=== PATIENT | female | born 1935 | race Caucasian/White ===

== ENCOUNTER 2019-10-04 05:06 | Inpatient (IN) ==
[2019-10-04] MEDS ORDERED: fentaNYL citrate 100 MCG/2 ML VIAL IV PRN (05:40)
[2019-10-04] MEDS ORDERED: DICLOFENAC SOD 1% GEL 100 GM TUBE EXT STA (05:40)
[2019-10-04] MEDS ORDERED: ACETAMINOPHEN 1,000 MG/100 ML VIAL IV STA (05:40)
--- NOTE | 2019-10-04 05:47 | Emergency Department Note ---
History of Present Illness General Chief complaint: Back Injury/Pain Stated complaint: SEVERE LOWER BACK PAIN Time Seen by Provider: 10/04/19 05:21 Source: patient Mode of arrival: wheelchair Limitations: no limitations History of Present Illness Provider complaint: back pain, hip pain Onset (ago): hour(s) Location: back and hip Radiation: extremity Severity: moderate Pain Consistency: + constant Maximum Pain Intensity: 10 Current Pain Intensity: 10 Quality: + constant Relieved By: + none Exacerbated By: + movement Associated symptoms: no chest pain, no fever/chills, no nausea/vomiting, no shortness of breath, no syncope and no weakness Treatments prior to arrival: none This is an 84 yo female who present c/o worsening low back pain and hip pain with difficulty walking. Patient states pain began 3 weeks ago. Patient has a remote history of a compression fracture from 2 weeks ago. Patient states at the beginning of the month she was seen and lock even and had a CT and was told she had bulging disks, as well as other chronic findings including osteoporosis and a remote compression fracture. No recent trauma. Patient has been using gabapentin, Lidoderm patch. Patient initially was given tramadol by the ER doctor, however did not tolerate this due to nausea. Patient states the pain radiates from her right low back into her right lateral hip and all the way down her leg. Patient denies numbness or tingling. Patient denies saddle anesthesia. Patient denies any change in bowel or bladder function. No incontinence. Patient denies any fevers or chills, nausea or vomiting. Patient denies any other abdominal pain. Patient states she spent most of the day in bed as it was too painful to move. Pt seen during a time of high acuity and national emergency pandemic while wearing PPE. Home Medications Home Medications Medication Instructions Recorded Confirmed Type alendronate 70 mg PO MO 10/04/19 10/04/19 History apixaban [Eliquis] 5 mg PO BID 10/04/19 10/04/19 History atenolol 25 mg PO DAILY 10/04/19 10/04/19 History cholecalciferol (vitamin D3) 25 mcg PO DAILY 10/04/19 10/04/19 History [Vitamin D3] docusate sodium 100 mg PO BID PRN 10/04/19 10/04/19 History levothyroxine [Synthroid] 112 mcg PO DAILY 10/04/19 10/04/19 History omeprazole 20 mg PO DAILY 10/04/19 10/04/19 History pravastatin 20 mg PO DAILY 10/04/19 10/04/19 History Allergies Allergy/AdvReac Type Severity Reaction Status Date / Time Iodinated Contrast Media Allergy Unknown _ Unverified 10/04/19 05:41 Past Med/Surg History Medical History (Updated 10/04/19 @ 12:13 by Kaitlin Galvez PA-C) CKD (chronic kidney disease), stage III History of second degree heart block Status post PPM 2017 HLD (hyperlipidemia) HTN (hypertension) Osteoporosis Paroxysmal A-fib Surgical History (Updated 10/04/19 @ 11:56 by Kaitlin Galvez PA-C) History of cardiac pacemaker in situ [address] [place] [address] Lao History of hysterectomy History of laparoscopic cholecystectomy History of total bilateral knee replacement History of total thyroidectomy Family History (Updated 10/04/19 @ 12:00 by Kaitlin Galvez PA-C) Other Family history non-contributory Social History (Updated 10/04/19 @ 12:00 by Kaitlin Galvez PA-C) Smoking Status: Never smoker Hx Alcohol Use: No Hx Substance Use: No Preferred Language: Gu[place] After School Caregiver Required: No Beliefs That Will Affect Care: None marital status: / Current Living Situation: Alone Other Information That Helps Us Care for You: No Feels Safe at Home: Yes Safety Concerns: Feels Safe At This Time Review of Systems See HPI for pertinent positives & negatives. and A total of 10 systems reviewed and were otherwise negative Physical Exam Vital Signs Vital Signs - 24 hr 10/04/19 05:14 10/04/19 06:07 10/04/19 06:30 Temperature 36.8 C Temperature Source Oral Pulse Rate 65 61 60 Pulse Rate from SpO2 Sensor 61 60 Respiratory Rate 16 14 13 Respiratory Depth Normal Blood Pressure 189/94 H 171/89 H 140/81 Blood Pressure Mean 125 109 99 Blood Pressure Position Sitting Pulse Oximetry 96 92 95 Oxygen Delivery Method Room Air Sepsis Recent Fever Within 48 Hours No Sepsis New/Unexplained Change in Mental Status No Sepsis Action Taken by Nursing No Action Required 10/04/19 07:00 10/04/19 07:30 10/04/19 08:00 Temperature Temperature Source Pulse Rate 60 62 60 Pulse Rate from SpO2 Sensor 60 62 61 Respiratory Rate 16 14 14 Respiratory Depth Blood Pressure 142/78 H 147/74 H 147/86 H Blood Pressure Mean 96 95 109 Blood Pressure Position Pulse Oximetry 92 97 96 Oxygen Delivery Method Sepsis Recent Fever Within 48 Hours Sepsis New/Unexplained Change in Mental Status Sepsis Action Taken by Nursing 10/04/19 08:30 10/04/19 09:00 10/04/19 09:30 Temperature Temperature Source Pulse Rate 60 60 64 Pulse Rate from SpO2 Sensor 60 64 Respiratory Rate 13 13 20 Respiratory Depth Blood Pressure 177/91 H 177/100 H 193/111 H Blood Pressure Mean 111 135 131 Blood Pressure Position Pulse Oximetry 96 98 95 Oxygen Delivery Method Sepsis Recent Fever Within 48 Hours Sepsis New/Unexplained Change in Mental Status Sepsis Action Taken by Nursing 10/04/19 10:00 Temperature Temperature Source Pulse Rate 65 Pulse Rate from SpO2 Sensor 65 Respiratory Rate 20 Respiratory Depth Blood Pressure 181/97 H Blood Pressure Mean 111 Blood Pressure Position Pulse Oximetry 97 Oxygen Delivery Method Sepsis Recent Fever Within 48 Hours Sepsis New/Unexplained Change in Mental Status Sepsis Action Taken by Nursing GENERAL: alert, well appearing, well nourished, no distress, non-toxic, obese, tearful EYE EXAM: normal conjunctiva, PERRL and EOM's grossly intact OROPHARYNX: no exudate, no erythema, lips, buccal mucosa, and tongue normal and mucous membranes are moist NECK: supple, no nuchal rigidity, no adenopathy, non-tender LUNGS: Clear to auscultation. Normal chest wall mechanics, no w/r/r HEART: no murmurs, S1 normal and S2 normal ABDOMEN: abdomen soft, non-tender, normo-active bowel sounds, no masses, no rebound or guarding. BACK: Back is symmetrical on inspection and there is no deformity, no midline tenderness, no CVA tenderness. SKIN: no rashes and no bruising UPPER EXTREMITIES: upper extremities are grossly normal. FROM, nml pulses b/l. LOWER EXTREMITIES: No pitting edema. FROM, nml pulses b/l. Pain with palpation of the right lateral hip. NEURO EXAM: Normal sensorium, cranial nerves II-XII grossly intact, normal speech, no gross weakness of arms, no gross weakness of legs. Gross sensation intact. Course Course 08: Patient updated on results. Still awaiting faxed report from recent CT from [facility] even. I did contact radiology to double check patient's pacemaker for MRI compatibility. We had previously faxed a release of information paper to locate them to try and obtain results of the recent CT from 2 weeks ago. A copy of this has not yet arrived. 0845: Results from recent CT of the lumbar spine have now arrived. Overall impression is read by Marty Yeung MD, Impression: Diffuse osseous demineralization with stable compression fractures of L1 (with 30% loss of the vertebral body height) and L3. (Greater than 50% loss of the vertebral body height). No new compression fracture. L4-5: There is a concentric bulge minimally contacting the thecal sac. There is bilateral ligamentum flavum and facet hypertrophy. Pelvis: Diverticulosis coli without acute diverticulitis. There is a stable right-sided hypoattenuating cystic pelvic mass of 5.0 x 2.9 cm with Hounsfield units of 2 probably representing a right ovarian cyst. 0911: With the assistance of nursing staff from radiology, we did double check the patient's [place] pacemaker and it is not MRI compatible. Case management discussing with patient options for inpatient management versus inpatient rehab at this time. She is aware of CT findings from outpatient CT. Will perform an ambulatory trial here. UA still pending. Administered Medications Hydrocodone Bitart/Acetaminophen ([place] 5/325) 1 tab PO Q4H PRN PRN Reason: Moderate Pain Stop: 10/18/19 11:04 Last Admin: 10/04/19 15:36 Dose: 1 tab Documented by: [id number] Admin: 10/04/19 11:42 Dose: 1 tab Documented by: [id number] Al Hydrox/Mg Hydrox/Simethicone (Maalox) 30 ml PO Q6H PRN PRN Reason: Dyspepsia Stop: 11/03/19 12:59 Last Admin: 10/04/19 23:51 Dose: 30 ml Documented by: [id number] Apixaban (Eliquis) 5 mg PO BID MARIA TERESA Stop: 11/03/19 20:59 Last Admin: 10/04/19 20:47 Dose: 5 mg Documented by: [id number] Docusate Sodium (Colace) 100 mg PO BID PRN PRN Reason: Constipation Stop: 11/03/19 12:59 Last Admin: 10/04/19 20:48 Dose: 100 mg Documented by: [id number] Lidocaine (Lidoderm 5%) 1 patch TD QAM [facility] Stop: 11/03/19 13:14 Last Admin: 10/04/19 14:06 Dose: 1 patch Documented by: [id number] Miscellaneous (Remove Lidoderm Patch) 1 ea N/A DAILY@2100 [facility] Stop: 11/03/19 20:59 Last Admin: 10/04/19 20:47 Dose: 1 ea Documented by: [id number] Morphine Sulfate (Morphine Sulfate) 4 mg IV Q4H PRN PRN Reason: Severe Pain Stop: 10/18/19 12:59 Last Admin: 10/04/19 17:02 Dose: 4 mg Documented by: [id number] Ondansetron HCl (Zofran) 4 mg IV Q6H PRN PRN Reason: Nausea Stop: 11/03/19 12:59 Last Admin: 10/04/19 17:12 Dose: 4 mg Documented by: [id number] Discontinued Medications Apixaban (Eliquis) 5 mg PO NOW STA Stop: 10/04/19 10:42 Last Admin: 10/04/19 11:36 Dose: 5 mg Documented by: [id number] Atenolol (Tenormin) 25 mg PO NOW STA Stop: 10/04/19 10:42 Last Admin: 10/04/19 11:36 Dose: 25 mg Documented by: [id number] Diclofenac Sodium (Voltaren 1% Top) 2 gm EXT NOW STA Stop: 10/04/19 05:41 Last Admin: 10/04/19 06:01 Dose: 2 gm Documented by: [id number] Fentanyl Citrate (Fentanyl Citrate) 50 mcg IV Q15M PRN PRN Reason: Pain Stop: 10/18/19 05:39 Last Admin: 10/04/19 05:55 Dose: 50 mcg Documented by: [id number] Acetaminophen (Ofirmev) 1,000 mg in 100 mls @ 400 mls/hr IV NOW STA Stop: 10/04/19 05:54 Last Infusion: 10/04/19 06:13 Dose: 0 mls/hr Documented by: [id number] Admin: 10/04/19 05:55 Dose: 400 mls/hr Documented by: [id number] Potassium Chloride (Klor-Con M20) 40 meq PO NOW STA Stop: 10/04/19 08:43 Last Admin: 10/04/19 08:47 Dose: 40 meq Documented by: [id number] Medical Decision Making Differential Diagnosis Differential diagnoses includes but is not limited to lumbar radiculopathy, muscle strain, facture, cauda equina, mass, and disc herniation. Medical Records Attestation: I reviewed the patient's medical records. Home Medications Current Medication List: was personally reviewed by me Laboratory Data Attestation: I reviewed the patient's lab results. Result diagrams: 10/04/19 05:55 10/04/19 05:55 Lab Results 10/04/19 10/04/19 Range/Units 05:55 05:55 WBC 6.26 (4.8-10.8) K/uL RBC 4.28 (4.2-5.4) M/uL Hgb 12.8 (12.0-16.0) g/dL Hct 38.0 (37-47) % MCV 88.8 (80-100) fL MCH 29.9 (25-34) pg MCHC 33.7 (32-36) g/dL RDW Std Deviation 45.3 (36.4-46.3) fL RDW Coeff of Adonis 13.9 (11.5-14.5) % Plt Count 314 (130-400) K/uL MPV 9.5 (7.4-10.4) fL Immature Gran % (Auto) 0.3 % Neut % (Auto) 71.1 % Lymph % (Auto) 16.1 % [place] % (Auto) 10.5 % Eos % (Auto) 1.8 % Baso % (Auto) 0.2 % Neut # (Auto) 4.45 (1.4-6.5) K/uL Lymph # (Auto) 1.01 L (1.2-3.4) K/uL [place] # (Auto) 0.66 H (0.11-0.59) K/uL Eos # (Auto) 0.11 (0-0.5) K/uL Baso # (Auto) 0.01 (0-0.2) K/uL Immature Gran # (Auto) 0.02 (0.00-0.02) K/uL Sodium 140 (136-145) mmol/L Potassium 3.3 L (3.5-5.1) mmol/L Chloride 108 H (98-107) mmol/L Carbon Dioxide 27 (21-32) mmol/L Anion Gap 5.0 (3-11) BUN 15 (7-18) mg/dl Creatinine 0.85 (0.6-1.2) mg/dl Est Cr Clr Drug Dosing 49.6 ml/min Est GFR ( Amer) 72.4 Est GFR (Non-Af Amer) 62.5 BUN/Creatinine Ratio 18.1 (10-20) Glucose 90 (70-99) mg/dl Calcium 8.9 (8.5-10.1) mg/dl Total Bilirubin 0.3 (0.2-1) mg/dl AST 21 (15-37) U/L ALT 23 (12-78) U/L Alkaline Phosphatase 143 H (45-117) U/L Total Protein 7.9 (6.4-8.2) gm/dl Albumin 3.1 L (3.4-5.0) gm/dl Globulin 4.8 H (2.5-4.0) gm/dl Albumin/Globulin Ratio 0.6 L (0.9-2) Blood Pressure Blood Pressure Findings: Elevated blood pressure Blood Pressure Disposition: further management by hospitalist [facility] Narrative Patient here due to increased back pain with lumbar radiculopathy. Patient with remote history of compression fractures and chronic back pain. States pain has been getting worse recently with increased radicular symptoms which have limited her ability to perform ADLs at home as she lives independently. We were eventually able to obtain a copy of the recent CT of the lumbar spine the patient had. We did check into the patient's pacemaker device to see if it was MRI compatible and it was not. Basic labs were checked as a precaution, lynneverardo nt's potassium was repleted with oral potassium. UA was pending however I began discussing with the immigration case worker options for disposition including inpatient versus rehab. The immigration case worker went and discussed these options with the patient and her daughter bedside. Nurse did attempt to perform an ambulatory trial to help the patient get up to obtain a urine and this was unsuccessful. While patient had improved pain with some additional medications at rest, any movement significantly exacerbates her pain. Patient hypertensive here which I feel is likely secondary to increased pain and discomfort, as well as the fire supervisor hours as she would be soon ready for blood pressure medication re gardless. Patient's had no recent traumatic injury, I did not feel she required additional repeat CT imaging at this time. Patient had no symptoms to suggest cauda equina. I do not suspect epidural abscess or hematoma, acute discitis, acute nerve impingement or disc herniation. Patient's was signed out to eladio Peña pending final decision on disposition after review of urine. I do not suspect acute vascular etiology, or referred pain from intra-abdominal pathology contributing to patient's symptoms. An order was placed for continuous cardiac monitoring. The monitor shows a rate of _68_ with _normal sinus_ rhythm. Impression & Plan Low back pain, Lumbar radiculopathy, Ambulatory dysfunction Discharge Plan Visit Data *Final* Discharge Date/Time: 10/04/19 11:56 Chief Complaint: Back Injury/Pain Stated Complaint: SEVERE LOWER BACK PAIN ED Provider: Edmond Echevarria Discharge Problem: Low back pain, Lumbar radiculopathy, Ambulatory dysfunction Patient Disposition: Admitted As Inpatient Discharge Instructions Interventions: ED Discharge Assessment Last Done: 10/04/19 11:56 Discharge Problem: Low back pain Qualifiers: Chronicity: acute Back pain laterality: right Sciatica presence: with sciatica Sciatica laterality: sciatica of right side Qualified Code(s): M54.41 - Lumbago with sciatica, right side
[2019-10-04 06:04] LABS: Basophils # (auto) 0.01 K/uL (0-0.2); Basophils % (auto) 0.2 %; Eosinophils # (auto) 0.11 K/uL (0-0.5); Eosinophils % (auto) 1.8 %; Hemoglobin 12.8 g/dL (12.0-16.0); Immature Granulocytes # (auto) 0.02 K/uL (0.00-0.02); Immature Granulocytes % (auto) 0.3 %; Lymphocytes # (auto) 1.01 K/uL (1.2-3.4); Lymphocytes % (auto) 16.1 %; Mean Corpuscular Hemoglobin 29.9 pg (25-34); Mean Corpuscular Hgb Conc 33.7 g/dL (32-36); Mean Corpuscular Volume 88.8 fL (80-100); Mean Platelet Volume 9.5 fL (7.4-10.4); Monocytes # (auto) 0.66 K/uL (0.11-0.59); Monocytes % (auto) 10.5 %; Neutrophils # (auto) 4.45 K/uL (1.4-6.5); Neutrophils % (auto) 71.1 %; Platelet Count 314 K/uL (130-400); RDW Coefficient of Variation 13.9 % (11.5-14.5); RDW Standard Deviation 45.3 fL (36.4-46.3); Red Blood Count 4.28 M/uL (4.2-5.4); White Blood Count 6.26 K/uL (4.8-10.8)
[2019-10-04 06:20] LABS: Albumin Level 3.1 gm/dl (3.4-5.0); BUN Creatinine Ratio 18.1 (10-20); Calcium 8.9 mg/dl (8.5-10.1); Creatinine Clr Calc Pharmacy 49.6 ml/min; Est GFR (African American) 72.4; Est GFR (Non-African American) 62.5; Potassium 3.3 mmol/L (3.5-5.1)
[2019-10-04 06:25] LABS: Albumin Globulin Ratio 0.6 (0.9-2); Bilirubin,Total 0.3 mg/dl (0.2-1); Globulin 4.8 gm/dl (2.5-4.0); Total Protein 7.9 gm/dl (6.4-8.2)
[2019-10-04] MEDS ORDERED: POTASSIUM CHLORIDE 20 MEQ TABCR PO STA (08:42)
--- NOTE | 2019-10-04 10:00 | Emergency Department Note ---
ED Visit Note Received patient in sign out. Discussed pt with hospitalist service who accepted the patient. . : Low back pain Qualifiers: Chronicity: acute Back pain laterality: right Sciatica presence: with sciatica Sciatica laterality: sciatica of right side Qualified Code(s): M54.41 - Lumbago with sciatica, right side
[2019-10-04] MEDS ORDERED: ATENOLOL 25 MG TABLET PO STA (10:41)
[2019-10-04] MEDS ORDERED: APIXABAN 2.5 MG TAB PO STA (10:41)
--- NOTE | 2019-10-04 11:21 | History & Physical Report ---
Date of Service October 04, 2019 Assessment & Plan (1) Ambulatory dysfunction: (2) Lumbar radiculopathy: (3) Compression fracture: This is an 84-year-old female who has significant PMH of PAF anticoagulated on Eliquis, HTN, HLD, CKD stage III, history of second-degree heart block status post PPM in 2017, GERD who presents to ED secondary to intractable back pain x2 weeks. Pt with intractable low back pain with lumbar radiculopathy symptoms. Prior CT of lumbar spine revealed L1 and L3 stable and no compression fractures, no new fractures. Patient unable to have MRI given pacemaker. Now with ambulatory dysfunction, worsening of symptoms and unable to return home. +straight leg raise. Admit to medical Repeat CT thoracic, lumbar and pelvis Unfortunately unable to have MRI given pacer consult Dr. Beatty - appreciate his input consult PT/OT pain control with lidocaine patch, [place] q4hr prn mod pain and morphine 4mg q4hr severe pain may need to consult pain management if no improvement (4) Hypokalemia: K 3.3 replace repeat in a.m. (5) Paroxysmal A-fib: Rate and rhythm controlled on atenolol Continue apixaban for stroke prophylaxis (6) HTN (hypertension): Blood pressure elevated in ED likely in setting of pain Home dose atenolol now Control pain and monitor (7) CKD (chronic kidney disease), stage III: baseline cr 1.0 monitor (8) HLD (hyperlipidemia): continue statin (9) DVT prophylaxis: apixaban Disposition: admit to med/surg, case management consulted, likely to need placement at acute rehab Follow up: PCP Dr. Castañeda upon discharge Pt was seen and examined in collaboration with Dr. Bosch, please see addendum History of Present Illness Chief Complaint: Intractable back pain x3 weeks. Primary Care Provider: Lakesha Castañeda, DO This is an 84-year-old female who has significant PMH of PAF anticoagulated on Eliquis, HTN, HLD, CKD stage III, history of second-degree heart block status post PPM in 2017, GERD who presents to ED secondary to intractable back pain x2 weeks. Daughter Jessica is at bedside. Patient states over the past 3 weeks she developed significant bilateral lower back pain with radiation to bilateral lower extremities right greater than left. Pain radiates to the lateral aspect of right buttock and down right leg to foot. Pain is described as sharp and burning, worse with movement, improved with rest, tried Tylenol, lidocaine patch, tramadol without relief. Pain in the left leg is more of a, "tightness," and will loosen up with walking, but this does not occur on the right. She is a known PMH of osteoporosis as well as known compression fractures. She was seen in walk even to ED on 09/[address] scan which revealed diffuse osseous demineralization with stable compression fractures of L1 and L3. L4-5 revealed concentric bulge minimally contacting the thecal sac and bilateral ligamentum flavum and facet hypertrophy. Also noted was a 5 x 2 cm cystic pelvic mass representing ovarian cyst. He was unable to obtain MRI due to pacemaker as it was found to be noncompatible. She was seen and evaluated by PCP as well and did receive a steroid injection to right buttock. She was also prescribed tramadol which caused nausea and she did not tolerate this. She has had progressive decline with ambulatory status and functioning at home. Initially it started with difficulty with ADLs and now she just has difficulty ambulating in general. Pain is extremely severe when standing and attempting to walk. She denies any bowel or bladder incontinence. She does deal with constipation on a chronic basis and last BM was 2 days ago. She does take [id number] stool softeners. She denies any fever, chills, sweats, lightheadedness, dizziness, chest pain, short breath, cough, nausea, vomiting, abdominal pain. She denies any known contact with COVID-19. Denies any loss of smell or taste. In ED patient made hemodynamically stable but was significantly hypertensive in setting of pain. She also did not have her a.m. meds. Lab work notable for K3.3, BUN and creatinine 15.85 otherwise CBC and CMP relatively unremarkable. Urinalysis appears consistent with contamination. In ED she did receive analgesia with improvement in pain. She also received oral potassium. Allergies Allergy/AdvReac Type Severity Reaction Status Date / Time Iodinated Contrast Media Allergy Unknown _ Unverified 10/04/19 05:41 Home Medications Home Medications Medication Instructions Recorded Confirmed Type alendronate 70 mg PO MO 10/04/19 10/04/19 History apixaban [Eliquis] 5 mg PO BID 10/04/19 10/04/19 History atenolol 25 mg PO DAILY 10/04/19 10/04/19 History cholecalciferol (vitamin D3) 25 mcg PO DAILY 10/04/19 10/04/19 History [Vitamin D3] docusate sodium 100 mg PO BID PRN 10/04/19 10/04/19 History levothyroxine [Synthroid] 112 mcg PO DAILY 10/04/19 10/04/19 History omeprazole 20 mg PO DAILY 10/04/19 10/04/19 History pravastatin 20 mg PO DAILY 10/04/19 10/04/19 History Past Med/Surg History Medical History (Updated 10/04/19 @ 12:13 by Kaitlin Galvez PA-C) CKD (chronic kidney disease), stage III History of second degree heart block Status post PPM 2017 HLD (hyperlipidemia) HTN (hypertension) Osteoporosis Paroxysmal A-fib Surgical History (Updated 10/04/19 @ 11:56 by Kaitlin Galvez PA-C) History of cardiac pacemaker in situ [address] [place] [address] Lao History of hysterectomy History of laparoscopic cholecystectomy History of total bilateral knee replacement History of total thyroidectomy Family History (Updated 10/04/19 @ 12:00 by Kaitlin Galvez PA-C) Other Family history non-contributory Social History (Updated 10/04/19 @ 12:00 by Kaitlin Galvez PA-C) Smoking Status: Never smoker Hx Alcohol Use: No Hx Substance Use: No Preferred Language: Faroese Base Filler Operator Required: No Beliefs That Will Affect Care: None marital status: / Current Living Situation: Alone Other Information That Helps Us Care for You: No Feels Safe at Home: Yes Safety Concerns: Feels Safe At This Time Review of Systems Review of Systems: All systems reviewed & are unremarkable except as noted in HPI & below Physical Exam Physical Exam: Constitutional: WD/WN, elderly, female, vitals as above, NAD, sitting up in bed, pleasant, conversing easily Head: Normocephalic, Atraumatic Eyes: PERRL, conjunctivae normal, anicteric sclerae ENMT: external ear and nose normal, oropharynx normal Neck: trachea midline, no thyromegaly normal visual inspection Respiratory: normal respiratory effort, lungs clear to auscultation, no wheeze, rales, rhonchi. Normal insp/exp effort, no accessory muscle use Cardiovascular: RRR, no murmur, no edema but obese lower extremities vessels: no JVD or carotid bruit Chest: normal inspection of chest Abdomen: normal bowel sounds, soft, nontender, no hepatosplenomegaly Musculoskeletal: no cyanosis or clubbing, patient with inability to move bilateral lower extremities secondary to pain. I was able to passively flex and extend bilateral lower extremities. Positive straight leg raise on right. Positive pain to palpation to bilateral paraspinal musculature but no pain to palpation of her actual vertebral processes. Back examined and no erythema or rash. Bilateral upper extremities range of motion in place and strength 5 out of 5. Skin: no rashes, warm and dry normal turgor Neurologic: PERRL, EOMI, accommodation nl, no face palsy, no dysarthria CN's II-XI intact bilaterally and moves all extremities Psychiatric: A+Ox3, euthymic affect Lymphatic: no cervical or axillary lymphadenopathy : deferred Results & Data Results & Data ([facility]) Vital Signs (Past 12 Hours) Vital Signs Temp Pulse Resp BP Pulse Ox 10/04/19 10:00 65 20 181/97 H 97 10/04/19 09:30 64 20 193/111 H 95 10/04/19 09:00 60 13 177/100 H 98 10/04/19 08:30 60 13 177/91 H 96 10/04/19 08:00 60 14 147/86 H 96 10/04/19 07:30 62 14 147/74 H 97 10/04/19 07:00 60 16 142/78 H 92 10/04/19 06:30 60 13 140/81 95 10/04/19 06:07 61 14 171/89 H 92 10/04/19 05:14 36.8 C 65 16 189/94 H 96 Laboratory Results Short CBC 10/04/19 Range/Units 05:55 WBC 6.26 (4.8-10.8) K/uL Hgb 12.8 (12.0-16.0) g/dL Hct 38.0 (37-47) % Plt Count 314 (130-400) K/uL BMP 10/04/19 05:55 Sodium 140 Potassium 3.3 L Chloride 108 H Carbon Dioxide 27 BUN 15 Creatinine 0.85 Glucose 90 Calcium 8.9 Liver Function 10/04/19 Range/Units 05:55 Total Bilirubin 0.3 (0.2-1) mg/dl AST 21 (15-37) U/L ALT 23 (12-78) U/L Alkaline Phosphatase 143 H (45-117) U/L Albumin 3.1 L (3.4-5.0) gm/dl Diagnostic Findings CT scan reviewed from 09/19/19 at OSH: Diffuse osseous demineralization with stable compression fractures of L1 (with 30% loss of vertebral body height) and L3. (Greater than 50% loss of vertebral body height (. No new compression fracture. L4-5: There is a concentric bulge minimally contacting the thecal sac there is bilateral mild ligamentum flavum and facet hypertrophy. Pelvis: Diverticulosis coli without acute diverticulitis, stable right-sided hypoattenuating cystic pelvic mass of 5 to 2.9 cm representing ovarian cyst. Medications Administered Fentanyl Citrate (Fentanyl Citrate) 50 mcg IV Q15M PRN PRN Reason: Pain Stop: 10/18/19 05:39 Last Admin: 10/04/19 05:55 Dose: 50 mcg Documented by: [id number] Discontinued Medications Diclofenac Sodium (Voltaren 1% Top) 2 gm EXT NOW STA Stop: 10/04/19 05:41 Last Admin: 10/04/19 06:01 Dose: 2 gm Documented by: [id number] Acetaminophen (Ofirmev) 1,000 mg in 100 mls @ 400 mls/hr IV NOW STA Stop: 10/04/19 05:54 Last Infusion: 10/04/19 06:13 Dose: 0 mls/hr Documented by: [id number] Admin: 10/04/19 05:55 Dose: 400 mls/hr Documented by: [id number] Potassium Chloride (Klor-Con M20) 40 meq PO NOW STA Stop: 10/04/19 08:43 Last Admin: 10/04/19 08:47 Dose: 40 meq Documented by: [id number] Code Status & VTE Plan Code Status Full Code VTE Prophylaxis Plan VTE Prophylaxis will be ordered: No Supervising Physician Co-Signing Physician Notes Attending addendum The patient was seen and examined in the presence of the daughter She was admitted with back pain with radiation to the legs No pain at rest Denies any problem with urine and bowel habit On examination Lying in bed comfortably Hemodynamically stable Chest-clear to auscultate bilaterally Heart-S1, S2 regular Abdomen-benign Extremities-trace edema bilaterally ADMISSION NURSE COORDINATOR-alert, awake and oriented x3 Spine-lower spinal tenderness with pain radiating down to the foot on the right side Admission labs and imaging studies reviewed Has lumbar compression fracture with radiculopathy Appreciate Ortho input and recommendation Reviewed with assessment and plan as outlined above by Samantha Bosch
[2019-10-04] MEDS: HYDROCODONE/ACETAMOPHEN 5/325MG TAB PO PRN ×2 (11:42→15:36)
[2019-10-04 11:51] LABS: Appearance Urine Clear (Clear); Bacteria Urine Automated Negative (Negative); Bilirubin Urine Negative (Negative); Blood Urine Negative (Negative); Color Urine Yellow; Epithelial Cell Urine Auto >30 /lpf (0-5); Glucose Urine UA Negative (Negative); Ketones Urine 1+ (Negative); Leukocyte Esterase Urine Trace (Negative); Nitrite Urine Negative (Negative); Protein Urine Negative (Negative); Specific Gravity Urine 1.024 (1.000-1.030); Urobilinogen Urine Negative (Negative)
--- NOTE | 2019-10-04 12:57 | CT Scan Report ---
CT thoracic spine wo con HISTORY: 84 years-old Female pain acute mid back pain status post fall COMPARISON: None TECHNIQUE: Multiple axial CT images of the thoracic spine were obtained without the use of IV contras t. A dose lowering technique was used consistent with the principals of JUSTINE. FINDINGS: Moderate cardiomegaly. Coronary artery calcifications. Mildly enlarged mediastinal lymph nodes measur e up to 1.2 cm within the precarinal distribution. Mild dependent subsegmental bibasilar atelectasis. 6 mm fissural nodule of the left lower lobe suggests probable lymph node. The central airways appear patent. Small hiatal hernia with mild distal esophageal wall thickening. Mild distal periesophageal stranding is also noted. There is mild nonspecific bilateral perinephric stranding. Probable cyst of the posterior interpolar right kidney, 1.6 cm. Demineralized appearance the bones with increased kyphotic curvature of the thoracic spine. There is at least moderate multilevel intervertebral disc space narrowing with moderate facet arthrosis and sp ondylitic spurring. Mild superior endplate compression deformity of less than 20% is noted at T1, lik brennen chronic. 30% anterior endplate compression deformity at T6 is noted without retropulsion, also li joel chronic. 50% superior endplate compression deformity without retropulsion at L1, age indetermina te. Evaluation of the central canal and neuroforamina is better assessed by MRI. No high-grade centra l canal stenosis. No definite paravertebral edema. IMPRESSION: 1. No definite acute fracture or subluxation. 2. There is mild superior endplate compression deformity involving multiple thoracic levels, measurin g approximately 30% at T6. These are technically age-indeterminate however are favored to be chronic in etiology. No paravertebral edema or retropulsion. 3. Age-indeterminate L1 compression deformity. 4. Demineralized appearance of the bones with multilevel degenerative changes as above. 5. Small hiatal hernia with mild distal esophageal wall thickening and periesophageal stranding. Edward elate clinically to exclude esophagitis. 6. Hiatal hernia. 7. Nonspecific mild mediastinal adenopathy. ACT 112: Negative or not required by law. The above report was generated using voice recognition software. It may contain grammatical, syntax o r spelling errors. Electronically signed by: Raza Lucio M.D. 10/04/2019 12:56 PM
--- NOTE | 2019-10-04 12:58 | CT Scan Report ---
PELVIS CT CT DOSE: HISTORY: Pelvic pain. pain TECHNIQUE: Multiaxial CT images of the pelvis were performed and reformatted in the sagittal and pat nal plane without the use of contrast. A dose lowering technique was utilized adhering to the princi ples of ALA. COMPARISON: None. FINDINGS: Moderate cartilage space narrowing within the bilateral hips consistent with osteoarthritis . Nondisplaced transverse fracture through the nondisplaced fracture within the anterior cortex of th e S2 vertebral body which extends to the bilateral sacral wings. Mild degenerative changes within the bilateral sacroiliac joints. No additional fractures identified within the pelvis or hips. Minimal p resacral edema. A 4.3 cm right ovarian cyst. This is considered pathologic in a postmenopausal female . Moderate stool within the colon and rectum. Colonic diverticulosis. No evidence for acute diverticu litis. No pelvic hematoma. IMPRESSION: 1. Nondisplaced sacral fractures described above. 2. A 4.3 cm right ovarian cyst. This is considered pathologic in a postmenopausal female ACT 112: Negative or not required by law. Electronically signed by: Henry Tracy M.D. 10/04/2019 12:56 PM
[2019-10-04] MEDS ORDERED: POLYETHYLENE (MIRALAX) 17 GM PACK PO PRN (13:00)
[2019-10-04] MEDS ORDERED: ALUMINUM/MAGNESIUM SUSP 30 ML UDC PO PRN (13:00)
[2019-10-04] MEDS ORDERED: MAGNESIUM HYDROXIDE SUSP 30 ML UDC PO PRN (13:00)
--- NOTE | 2019-10-04 13:00 | CT Scan Report ---
CT SCAN OF THE LUMBAR SPINE CLINICAL HISTORY: Low back pain. No reported history of trauma. Reported history of compression fract ures at L1 and L3. COMPARISON STUDY: No priors. TECHNIQUE: CT scan of the lumbar spine is performed from the lower thoracic spine to the sacrum. Imag es are reviewed in the axial, sagittal, and coronal planes. IV contrast was not administered for this examination. A dose lowering technique was utilized adhering to the principles of ALARA. CT DOSE: 582.64 mGycm FINDINGS: The skeletal structures are osteopenic. There is a mild to moderate superior endplate compr ession deformity of L1 and a moderate compression deformity of L2. No significantly retropulsed fragm ents are identified. Vertebral body height is otherwise maintained throughout the lumbar spine. Align ment is preserved. Small anterior and lateral marginal osteophytes are seen throughout. The transvers e and spinous processes are intact. There is no spondylolysis. No lytic or blastic lesion is seen. Th e intervertebral disc spaces appear maintained. There is no evidence of high-grade central canal sten osis by CT. Mild facet arthropathy is noted in the lower lumbar region. There are bilateral sacral in sufficiency fractures. This extends across midline at the level of S2. Degenerative change is noted i n the sacroiliac joints. There is fatty atrophy of the paraspinous musculature. The abdominal aorta i s normal in caliber noting moderate atherosclerotic calcification. IMPRESSION: 1. There are compression deformities of L1 and L3 as above which are reportedly chronic. 2. No additional bony abnormality is seen involving the lumbar spine. 3. There are bilateral sacral insufficiency fractures which cross midline at S2. 4. Additional findings as above. ACT 112: Negative or not required by law. Electronically signed by: Froy Bhatia M.D. 10/04/2019 12:59 PM
[2019-10-04] MEDS: LIDOCAINE 5% 1 PATCH TD SCH (14:06)
[2019-10-04] MEDS: MoRPHine SULFATE 4 MG/ML 1 ML CARP\\VIAL IV PRN (17:02)
[2019-10-04] MEDS: ONDANSETRON INJ 2 MG/ML 2 ML VIAL IV PRN (17:12)
--- NOTE | 2019-10-04 17:24 | Orthopedic Consultation ---
Date of Consultation October 04, 2019 Assessment & Plan (1) Lumbar radiculopathy: I have discussed with this patient and her daughter this evening regarding her clinical presentation. She does have evidence of a fracture at the S1-S2 level. Her of her pain patterns are consistent with this issue. She does appear to have a clear radiculopathy involving the L4-L5 region. Unfortunately she is unable to obtain an MRI secondary to pacemaker. The CAT scan demonstrates some neuroforaminal disease and stenosis but I am unable to appreciate clear neural compression. She would be a candidate for a CT myelogram however she is on Eliquis and this would have to be discontinued prior to such a study. Is probably warranted to consider consultation with interventional pain management to see if an epidural injection would also be of consideration or additional oral medications. Present on Admission?: Yes History of Present Illness Reason for Consultation: Back and right leg pain Attending Physician: Kori Bosch MD History of Present Illness This is a very pleasant 84-year-old female presents with worsening back and right leg pain over the past 3 weeks. She denies any precipitating trauma fall or event. She does use a cane when walking around her home. It is now unable to ambulate. She describes her symptoms involving lumbosacral junction of the right buttock going down the anterior posterior thigh below the knee and the lateral aspect of the lower leg into the foot. Weightbearing exacerbates her pain. Left lower extremity is essentially asymptomatic. She describes his pain is debilitating. Allergies Allergy/AdvReac Type Severity Reaction Status Date / Time Iodinated Contrast Media Allergy Unknown _ Unverified 10/04/19 05:41 Home Medications Home Medications Medication Instructions Recorded Confirmed Type alendronate 70 mg PO MO 10/04/19 10/04/19 History apixaban [Eliquis] 5 mg PO BID 10/04/19 10/04/19 History atenolol 25 mg PO DAILY 10/04/19 10/04/19 History cholecalciferol (vitamin D3) 25 mcg PO DAILY 10/04/19 10/04/19 History [Vitamin D3] docusate sodium 100 mg PO BID PRN 10/04/19 10/04/19 History levothyroxine [Synthroid] 112 mcg PO DAILY 10/04/19 10/04/19 History omeprazole 20 mg PO DAILY 10/04/19 10/04/19 History pravastatin 20 mg PO DAILY 10/04/19 10/04/19 History Patient History Medical History (Updated 10/04/19 @ 12:13 by Kaitlin Galvez PA-C) CKD (chronic kidney disease), stage III History of second degree heart block Status post PPM 2017 HLD (hyperlipidemia) HTN (hypertension) Osteoporosis Paroxysmal A-fib Surgical History (Updated 10/04/19 @ 11:56 by Katilin Galvez PA-C) History of cardiac pacemaker in situ [address] [address] Lao History of hysterectomy History of laparoscopic cholecystectomy History of total bilateral knee replacement History of total thyroidectomy Family History (Updated 10/04/19 @ 12:00 by Kaitlin Galvez PA-C) Other Family history non-contributory Social History (Updated 10/04/19 @ 12:00 by Kaitlin Galvez PA-C) Smoking Status: Never smoker Hx Alcohol Use: No Hx Substance Use: No Preferred Language: Mauritian Developmental Behavioral Physician Required: No Beliefs That Will Affect Care: None marital status: / Current Living Situation: Alone Other Information That Helps Us Care for You: No Feels Safe at Home: Yes Safety Concerns: Feels Safe At This Time Physical Exam Physical Exam: On exam she does not exhibit gross tension signs. He has a negative logroll bilaterally. She is hyperesthetic to touch in the lower extremities. This apparently is chronic. She does exhibit plus out of 5 plantar flexion dorsiflexion quadriceps bilaterally. Results & Data ([facility]) Vital Signs (Past 12 Hours) Vital Signs Temp Pulse Pulse Resp BP BP Pulse Ox 10/04/19 15:35 37.0 C 61 18 160/88 H 95 10/04/19 12:45 36.8 C 61 17 179/96 H 96 10/04/19 11:35 60 15 175/100 H 97 10/04/19 11:30 64 15 10/04/19 11:00 67 14 183/103 H 96 10/04/19 10:30 69 18 187/106 H 94 10/04/19 10:00 65 20 181/97 H 97 10/04/19 09:30 64 20 193/111 H 95 10/04/19 09:00 60 13 177/100 H 98 10/04/19 08:30 60 13 177/91 H 96 10/04/19 08:00 60 14 147/86 H 96 10/04/19 07:30 62 14 147/74 H 97 10/04/19 07:00 60 16 142/78 H 92 10/04/19 06:30 60 13 140/81 95 10/04/19 06:07 61 14 171/89 H 92
[2019-10-04] MEDS: APIXABAN 5 MG TABLET PO SCH (20:47)
[2019-10-04] MEDS: DOCUSATE SODIUM 100 MG CAP PO PRN (20:48)
[2019-10-05] MEDS: MoRPHine SULFATE 4 MG/ML 1 ML CARP\\VIAL IV PRN (04:32)
[2019-10-05] MEDS: ONDANSETRON INJ 2 MG/ML 2 ML VIAL IV PRN (04:36)
[2019-10-05] MEDS: LEVOTHYROXINE SODIUM 112 MCG TABLET PO SCH (05:24)
[2019-10-05] MEDS: HYDROCODONE/ACETAMOPHEN 5/325MG TAB PO PRN ×2 (09:37→13:40)
[2019-10-05] MEDS: APIXABAN 5 MG TABLET PO SCH ×2 (09:38→20:06)
[2019-10-05] MEDS: PRAVASTATIN SOD 20 MG TAB PO SCH (09:38)
[2019-10-05] MEDS: CHOLECALCIFEROL 1,000 UNITS 25 MCG TAB PO SCH (09:39)
[2019-10-05] MEDS: ATENOLOL 25 MG TABLET PO SCH (09:39)
[2019-10-05] MEDS: PANTOPRAZOLE PO SCH (09:39)
[2019-10-05] MEDS: LIDOCAINE 5% 1 PATCH TD SCH (09:41)
--- NOTE | 2019-10-05 16:52 | Hospitalist Progress Note ---
Date of Service October 05, 2019 Assessment & Plan (1) Ambulatory dysfunction: Secondary to back pain PT and OT evaluation (2) Lumbar radiculopathy: Has lower back pain secondary to compression fractures of the L1 and L3 and also sacral fracture Has radiculopathy mostly on the right side No problem with bowel and/or bladder function Appreciate Ortho input Consulted pain management as per Ortho (3) Compression fracture: This is an 84-year-old female who has significant PMH of PAF anticoagulated on Eliquis, HTN, HLD, CKD stage III, history of second-degree heart block status post PPM in 2017, GERD who presents to ED secondary to intractable back pain x2 weeks. Pt with intractable low back pain with lumbar radiculopathy symptoms. Prior CT of lumbar spine revealed L1 and L3 stable and no compression fractures, no new fractures. Patient unable to have MRI given pacemaker. Now with ambulatory dysfunction, worsening of symptoms and unable to return home. +straight leg raise. (4) Hypokalemia: K 3.3 replace repeat in a.m. (5) Paroxysmal A-fib: Rate and rhythm controlled on atenolol Continue apixaban for stroke prophylaxis No acute cardiac symptoms (6) HTN (hypertension): Blood pressure elevated in ED likely in setting of pain Home dose atenolol now Control pain and monitor (7) CKD (chronic kidney disease), stage III: baseline cr 1.0 monitor (8) HLD (hyperlipidemia): continue statin (9) DVT prophylaxis: apixaban Disposition: admit to med/surg, case management consulted, likely to need placement at acute rehab Follow up: PCP Dr. Castañeda upon discharge Discussed with the daughter in detail Admission and Anticipated Discharge Date Admission Date: October 05, 2019 Subjective The patient was seen and examined in the medical floor She was admitted with back pain and radiculopathy more on the right than the left side Clinically a little better today Could not tolerate physical therapy well Denies any bowel and/or bladder problems Review of Systems Review of Systems: All systems reviewed and are unremarkable except as noted below Musculoskeletal: Back pain with radiation of pain more on the right leg than the left Physical Exam Physical Exam: Lying in bed comfortably Constitutional: well developed and well nourished; no acute distress and not ill appearing Eyes: PERRL, conjunctivae normal, anicteric sclerae ENMT: external ear and nose normal, oropharynx normal Neck: trachea midline, no thyromegaly Respiratory: normal respiratory effort; no respiratory distress Auscultation: lungs clear to auscultation bilaterally Cardiovascular: Rate/Rhythm: regular rate and regular rhythm Heart Sounds: no murmur Gastrointestinal (Abdomen): Inspection/Auscultation: abdomen normal to inspection and normal bowel sounds; abdomen not distended Percussion/Palpation: abdomen soft Musculoskeletal: Severe back pain and tenderness in the lower spine and coccygeal area. Localized tenderness at lumbar spinal area with radiation of pain down the legs more on the right than the left Neurologic: moves all extremities; no focal motor deficits Alert, awake and oriented x3 Results & Data Results & Data ([facility]) Vital Signs (Past 12 Hours) Vital Signs Temp Pulse Resp BP Pulse Ox 10/05/19 14:54 37 C 60 18 146/82 H 96 10/05/19 07:20 36.7 C 60 16 166/94 H 95 Medications Administered Current Inpatient Medications Acetaminophen (Tylenol) 650 mg PO Q4H PRN PRN Reason: pain/fever Stop: 11/03/19 12:59 Hydrocodone Bitart/Acetaminophen ([place] 5/325) 1 tab PO Q4H PRN PRN Reason: Moderate Pain Stop: 10/18/19 11:04 Last Admin: 10/05/19 13:40 Dose: 1 tab Documented by: Al Hydrox/Mg Hydrox/Simethicone (Maalox) 30 ml PO Q6H PRN PRN Reason: Dyspepsia Stop: 11/03/19 12:59 Last Admin: 10/04/19 23:51 Dose: 30 ml Documented by: Apixaban (Eliquis) 5 mg PO BID [facility] Stop: 11/03/19 20:59 Last Admin: 10/05/19 09:38 Dose: 5 mg Documented by: Atenolol (Tenormin) 25 mg PO DAILY [facility] Stop: 11/04/19 08:59 Last Admin: 10/05/19 09:39 Dose: 25 mg Documented by: Docusate Sodium (Colace) 100 mg PO BID PRN PRN Reason: Constipation Stop: 11/03/19 12:59 Last Admin: 10/04/19 20:48 Dose: 100 mg Documented by: [facility] Stop: 11/04/19 06:29 Last Admin: 10/05/19 05:24 Dose: Not Given Documented by: Lidocaine (Lidoderm 5%) 1 patch TD QAM [facility] Stop: 11/03/19 13:14 Last Admin: 10/05/19 09:41 Dose: 1 patch Documented by: Magnesium Hydroxide (Milk Of Magnesia) 30 ml PO Q6H PRN PRN Reason: Constipation Stop: 11/03/19 12:59 Miscellaneous (Remove Lidoderm Patch) 1 ea N/A DAILY@2100 [facility] Stop: 11/03/19 20:59 Last Admin: 10/04/19 20:47 Dose: 1 ea Documented by: Morphine Sulfate (Morphine Sulfate) 4 mg IV Q4H PRN PRN Reason: Severe Pain Stop: 10/18/19 12:59 Last Admin: 10/05/19 04:32 Dose: 4 mg Documented by: Ondansetron HCl (Zofran) 4 mg IV Q6H PRN PRN Reason: Nausea Stop: 11/03/19 12:59 Last Admin: 10/05/19 04:36 Dose: 4 mg Documented by: Pantoprazole Sodium (Protonix) 40 mg PO DAILY [facility] Stop: 11/04/19 08:59 Last Admin: 10/05/19 09:39 Dose: 40 mg Documented by: Polyethylene Glycol (Miralax Powder Packet) 17 gm PO DAILY PRN PRN Reason: Constipation Stop: 11/03/19 12:59 Pravastatin Sodium (Pravachol) 20 mg PO DAILY [facility] Stop: 11/04/19 08:59 Last Admin: 10/05/19 09:38 Dose: 20 mg Documented by: Vitamin D (Vitamin D3) 1,000 units PO DAILY [facility] Stop: 11/04/19 08:59 Last Admin: 10/05/19 09:39 Dose: 1,000 units Documented by:
[2019-10-05] MEDS: ACETAMINOPHEN 325 MG TAB PO PRN (18:45)
[2019-10-06] MEDS: LEVOTHYROXINE SODIUM 112 MCG TABLET PO SCH (05:36)
[2019-10-06] MEDS: ACETAMINOPHEN 325 MG TAB PO PRN (06:01)
--- NOTE | 2019-10-06 08:38 | Pain Management Consultation ---
Date of Consultation October 06, 2019 Assessment & Plan (1) Compression fracture: 1. I have added Nucynta 50mg ER to her medication regimen. Side effect profile reviewed with the patient. 2. Hydrocodone 5/325mg x 4 hours will remain for breakthrough pain. 3. No interventional procedures to offer for the patient. Thank you for the consultation History of Present Illness Attending Physician: Kori Bosch MD History of Present Illness This is an 84 year old female that has been seen in the [facility] for intractable low back pain. She has been experiencing the pain for 3 weeks without any known injury. Pain is located along the low back, right buttock, and right hip region. Pain is aggravated with positional changes and relieved with laying supine. She was found to have chronic L1 and L3 compression fractures and likely new bilateral sacral insufficiency fractures. She is rating her pain 7/10 currently. She is having difficulty getting out of bed because of the pain. She is ordered Hydrocodone 5/325mg x 4 hours for pain relief which she has been taking sparingly. She denies any leg weakness. No falls. Pain Assessment Full Body Front + Back: 2 1. [facility] Combined Pain Scale: 7-Severe - Pain prevents productive activity. Impossible to tolerate. Pain scale - at its best (0-10): 0 Pain scale - at its worst (0-10): 10 Allergies Allergy/AdvReac Type Severity Reaction Status Date / Time Iodinated Contrast Media Allergy Unknown _ Unverified 10/04/19 05:41 Home Medications Home Medications Medication Instructions Recorded Confirmed Type alendronate 70 mg PO MO 10/04/19 10/04/19 History apixaban [Eliquis] 5 mg PO BID 10/04/19 10/04/19 History atenolol 25 mg PO DAILY 10/04/19 10/04/19 History cholecalciferol (vitamin D3) 25 mcg PO DAILY 10/04/19 10/04/19 History [Vitamin D3] docusate sodium 100 mg PO BID PRN 10/04/19 10/04/19 History levothyroxine [Synthroid] 112 mcg PO DAILY 10/04/19 10/04/19 History omeprazole 20 mg PO DAILY 10/04/19 10/04/19 History pravastatin 20 mg PO DAILY 10/04/19 10/04/19 History Pain History Pain Intensity Pain scale - at its best (0-10): 0 Pain scale - at its worst (0-10): 10 Patient History Medical History CKD (chronic kidney disease), stage III History of second degree heart block Status post PPM 2017 HLD (hyperlipidemia) HTN (hypertension) Osteoporosis Paroxysmal A-fib Surgical History History of cardiac pacemaker in situ [address] [place] [address] Lao History of hysterectomy History of laparoscopic cholecystectomy History of total bilateral knee replacement History of total thyroidectomy Family History Other Family history non-contributory Social History Smoking Status: Never smoker Hx Alcohol Use: No Hx Substance Use: No Preferred Language: [place] Communication Ability: Effective Holistic Nutritionist Required: No Beliefs That Will Affect Care: None marital status: / Current Living Situation: Alone Other Information That Helps Us Care for You: No Feels Safe at Home: Yes Safety Concerns: Feels Safe At This Time Physical Exam Physical Exam: GENERAL: 84 year old female that appears younger than her stated age. Speech and cognition is intact. Mood and affect is appropriate. In no acute distress. HEAD: Normocephalic; atraumatic. EYES: No conjunctival injection. EOM intact. ENT: No external ear discharge or lesions. No rhinorrhea or epistaxis. Moist oral mucosa. CHEST: Regular chest respiration and excursion. EXTREMITIES: Using all extremities appropriately. BACK: Loss of lumbar lordosis. There is tenderness along the lower lumbar and the right superior gluteal region. No trigger points noted. NEURO: CN II-XII grossly intact with no focal deficits noted. SKIN: No lesions, erythema, or rashes noted. Results Diagnostic Review CT Findings: CT SCAN OF THE LUMBAR SPINE CLINICAL HISTORY: Low back pain. No reported history of trauma. Reported history of compression fractures at L1 and L3. COMPARISON STUDY: No priors. TECHNIQUE: CT scan of the lumbar spine is performed from the lower thoracic spine to the sacrum. Images are reviewed in the axial, sagittal, and coronal planes. IV contrast was not administered for this examination. A dose lowering technique was utilized adhering to the principles of ALARA. CT DOSE: 582.64 mGycm FINDINGS: The skeletal structures are osteopenic. There is a mild to moderate superior endplate compression deformity of L1 and a moderate compression deformity of L2. No significantly retropulsed fragments are identified. Vertebral body height is otherwise maintained throughout the lumbar spine. Alignment is preserved. Small anterior and lateral marginal osteophytes are seen throughout. The transverse and spinous processes are intact. There is no spondylolysis. No lytic or blastic lesion is seen. The intervertebral disc spaces appear maintained. There is no evidence of high-grade central canal stenosis by CT. Mild facet arthropathy is noted in the lower lumbar region. There are bilateral sacral insufficiency fractures. This extends across midline at the level of S2. Degenerative change is noted in the sacroiliac joints. There is fatty atrophy of the paraspinous musculature. The abdominal aorta is normal in caliber noting moderate atherosclerotic calcification. IMPRESSION: 1. There are compression deformities of L1 and L3 as above which are reportedly chronic. 2. No additional bony abnormality is seen involving the lumbar spine. 3. There are bilateral sacral insufficiency fractures which cross midline at S2. 4. Additional findings as above. ACT 112: Negative or not required by law. Electronically signed by: Froy Bhatia M.D. 10/04/2019 12:59 PM
[2019-10-06] MEDS: APIXABAN 5 MG TABLET PO SCH ×2 (09:12→20:07)
[2019-10-06] MEDS: TAPENTADOL HCL ER 50 MG TABCR PO SCH ×2 (09:12→20:09)
[2019-10-06] MEDS: CHOLECALCIFEROL 1,000 UNITS 25 MCG TAB PO SCH (09:13)
[2019-10-06] MEDS: ATENOLOL 25 MG TABLET PO SCH (09:13)
[2019-10-06] MEDS: PANTOPRAZOLE PO SCH (09:13)
[2019-10-06] MEDS: HYDROCODONE/ACETAMOPHEN 5/325MG TAB PO PRN ×3 (09:53→23:46)
[2019-10-06] MEDS: LIDOCAINE 5% 1 PATCH TD SCH (09:53)
[2019-10-06] MEDS: PRAVASTATIN SOD 20 MG TAB PO SCH (10:55)
--- NOTE | 2019-10-06 11:36 | Hospitalist Progress Note ---
Date of Service October 06, 2019 Assessment & Plan (1) Ambulatory dysfunction: Secondary to back pain PT and OT evaluation (2) Lumbar radiculopathy: Has lower back pain secondary to compression fractures of the L1 and L3 and also sacral fracture Has radiculopathy mostly on the right side No problem with bowel and/or bladder function Appreciate Ortho input Appreciate pain management input and recommendation No intervention at this time and continue with oral pain management irrigation (3) Compression fracture: This is an 84-year-old female who has significant PMH of PAF anticoagulated on Eliquis, HTN, HLD, CKD stage III, history of second-degree heart block status post PPM in 2017, GERD who presents to ED secondary to intractable back pain x2 weeks. Pt with intractable low back pain with lumbar radiculopathy symptoms. Prior CT of lumbar spine revealed L1 and L3 stable and no compression fractures, no new fractures. Patient unable to have MRI given pacemaker. Now with ambulatory dysfunction, worsening of symptoms and unable to return home. +straight leg raise. We will continue with PT and OT (4) Hypokalemia: K 3.3 replace repeat in a.m. (5) Paroxysmal A-fib: Rate and rhythm controlled on atenolol Continue apixaban for stroke prophylaxis No acute cardiac symptoms (6) HTN (hypertension): Blood pressure elevated in ED likely in setting of pain Control pain and monitor Has been on atenolol 25 mg daily we will change to Lopressor and then Toprol-XL on discharge (7) CKD (chronic kidney disease), stage III: baseline cr 1.0 monitor (8) HLD (hyperlipidemia): continue statin (9) DVT prophylaxis: apixaban Disposition: admit to med/surg, case management consulted, likely to need placement at acute rehab Follow up: PCP Dr. Castañeda upon discharge Discussed with the daughter in detail Admission and Anticipated Discharge Date Admission Date: October 05, 2019 Subjective The patient was seen and examined in the medical floor She was admitted with back pain and radiculopathy more on the right than the left side Clinically a little better today Could not tolerate physical therapy well Denies any bowel and/or bladder problems 10/06/2019 Patient was seen and examined in medical floor She still complains of severe back pain with radiation down to the legs more on the right than the left side She denies any problem with urine and bowel habit Her pain medications have been changed as recommended by the pain therapist Review of Systems Review of Systems: All systems reviewed and are unremarkable except as noted below Musculoskeletal: Back pain with radiation of pain more on the right leg than the left Physical Exam Physical Exam: Lying in bed with moderate distress due to back pain Constitutional: well developed and well nourished; no acute distress and not ill appearing Eyes: PERRL, conjunctivae normal, anicteric sclerae ENMT: external ear and nose normal, oropharynx normal Neck: trachea midline, no thyromegaly Respiratory: normal respiratory effort; no respiratory distress Auscultation: lungs clear to auscultation bilaterally Cardiovascular: Rate/Rhythm: regular rate and regular rhythm Heart Sounds: no murmur Gastrointestinal (Abdomen): Inspection/Auscultation: abdomen normal to inspection and normal bowel sounds; abdomen not distended Percussion/Palpation: abdomen soft Musculoskeletal: Spine: + limited thoraco-lumbar ROM Extremities: + limited ROM of extremities (Lower extremities due to severe pain with elevation) Localized tenderness over sacrum. Neurologic: moves all extremities; no focal motor deficits Alert, awake and oriented x3 Results & Data Results & Data ([facility]) Vital Signs (Past 12 Hours) Vital Signs Temp Pulse Resp BP Pulse Ox 10/06/19 07:37 36.7 C 60 18 175/100 H 94 10/06/19 00:30 170/85 H Medications Administered Current Inpatient Medications Acetaminophen (Tylenol) 650 mg PO Q4H PRN PRN Reason: pain/fever Stop: 11/03/19 12:59 Last Admin: 10/06/19 06:01 Dose: 650 mg Documented by: Hydrocodone Bitart/Acetaminophen ([place] 5/325) 1 tab PO Q4H PRN PRN Reason: Moderate Pain Stop: 10/18/19 11:04 Last Admin: 10/06/19 09:53 Dose: 1 tab Documented by: Al Hydrox/Mg Hydrox/Simethicone (Maalox) 30 ml PO Q6H PRN PRN Reason: Dyspepsia Stop: 11/03/19 12:59 Last Admin: 10/04/19 23:51 Dose: 30 ml Documented by: Apixaban (Eliquis) 5 mg PO BID [facility] Stop: 11/03/19 20:59 Last Admin: 10/06/19 09:12 Dose: 5 mg Documented by: Atenolol (Tenormin) 25 mg PO DAILY [facility] Stop: 11/04/19 08:59 Last Admin: 10/06/19 09:13 Dose: 25 mg Documented by: Docusate Sodium (Colace) 100 mg PO BID PRN PRN Reason: Constipation Stop: 11/03/19 12:59 Last Admin: 10/04/19 20:48 Dose: 100 mg Documented by: Levothyroxine Sodium (Synthroid) 112 mcg PO DAILYBB [facility] Stop: 11/04/19 06:29 Last Admin: 10/06/19 05:36 Dose: 112 mcg Documented by: Lidocaine (Lidoderm 5%) 1 patch TD QAM [facility] Stop: 11/03/19 13:14 Last Admin: 10/06/19 09:53 Dose: 1 patch Documented by: Magnesium Hydroxide (Milk Of Magnesia) 30 ml PO Q6H PRN PRN Reason: Constipation Stop: 11/03/19 12:59 Miscellaneous (Remove Lidoderm Patch) 1 ea N/A DAILY@2100 [facility] Stop: 11/03/19 20:59 Last Admin: 10/05/19 20:06 Dose: 1 ea Documented by: Morphine Sulfate (Morphine Sulfate) 4 mg IV Q4H PRN PRN Reason: Severe Pain Stop: 10/18/19 12:59 Last Admin: 10/05/19 04:32 Dose: 4 mg Documented by: Ondansetron HCl (Zofran) 4 mg IV Q6H PRN PRN Reason: Nausea Stop: 11/03/19 12:59 Last Admin: 10/05/19 04:36 Dose: 4 mg Documented by: Pantoprazole Sodium (Protonix) 40 mg PO DAILY [facility] Stop: 11/04/19 08:59 Last Admin: 10/06/19 09:13 Dose: 40 mg Documented by: Polyethylene Glycol (Miralax Powder Packet) 17 gm PO DAILY PRN PRN Reason: Constipation Stop: 11/03/19 12:59 Pravastatin Sodium (Pravachol) 20 mg PO DAILY [facility] Stop: 11/04/19 08:59 Last Admin: 10/06/19 10:55 Dose: 20 mg Documented by: Tapentadol (Nucynta Er) 50 mg PO Q12 [facility] Stop: 10/20/19 08:59 Last Admin: 10/06/19 09:12 Dose: 50 mg Documented by: Vitamin D (Vitamin D3) 1,000 units PO DAILY [facility] Stop: 11/04/19 08:59 Last Admin: 10/06/19 09:13 Dose: 1,000 units Documented by:
[2019-10-06] MEDS: METOPROLOL TARTRATE 25 MG TAB PO SCH ×2 (13:09→20:07)
[2019-10-07] MEDS: LEVOTHYROXINE SODIUM 112 MCG TABLET PO SCH (05:53)
[2019-10-07] MEDS: HYDROCODONE/ACETAMOPHEN 5/325MG TAB PO PRN ×2 (06:36→16:00)
[2019-10-07] MEDS: TAPENTADOL HCL ER 50 MG TABCR PO SCH ×2 (07:57→20:14)
[2019-10-07] MEDS: PANTOPRAZOLE PO SCH (07:57)
[2019-10-07] MEDS: CHOLECALCIFEROL 1,000 UNITS 25 MCG TAB PO SCH (07:57)
[2019-10-07] MEDS: DOCUSATE SODIUM 100 MG CAP PO PRN (07:57)
[2019-10-07] MEDS: PRAVASTATIN SOD 20 MG TAB PO SCH (07:58)
[2019-10-07] MEDS: APIXABAN 5 MG TABLET PO SCH ×2 (07:58→20:13)
[2019-10-07] MEDS: METOPROLOL TARTRATE 25 MG TAB PO SCH ×2 (07:58→20:13)
[2019-10-07] MEDS: LIDOCAINE 5% 1 PATCH TD SCH (07:59)
[2019-10-07] MEDS ORDERED: HydrALAZINE HCL 20 MG/ML VIAL IV STA (10:50)
--- NOTE | 2019-10-07 12:18 | Hospitalist Progress Note ---
Date of Service October 07, 2019 Assessment & Plan (1) Ambulatory dysfunction: Secondary to back pain PT and OT evaluation-recommended rehab (2) Lumbar radiculopathy: Has lower back pain secondary to compression fractures of the L1 and L3 and also sacral fracture Has radiculopathy mostly on the right side No problem with bowel and/or bladder function Appreciate Ortho input-no surgical intervention Appreciate pain management input and recommendation No intervention at this time and continue with oral pain management irrigation Has been getting Nucynta and pain seems to be under control Participated in physical therapy and will be transferred to [facility] when the blood pressure is reasonably controlled Discussed with the daughter in detail (3) Compression fracture: This is an 84-year-old female who has significant PMH of PAF anticoagulated on Eliquis, HTN, HLD, CKD stage III, history of second-degree heart block status post PPM in 2017, GERD who presents to ED secondary to intractable back pain x2 weeks. Pt with intractable low back pain with lumbar radiculopathy symptoms. Prior CT of lumbar spine revealed L1 and L3 stable and no compression fractures, no new fractures. Patient unable to have MRI given pacemaker. Now with ambulatory dysfunction, worsening of symptoms and unable to return home. +straight leg raise. We will continue with PT and OT No surgical intervention as per orthopedic and pain therapist (4) Hypokalemia: K 3.3 replace repeat in a.m.-pending for now (5) Paroxysmal A-fib: Rate and rhythm controlled on atenolol Continue apixaban for stroke prophylaxis No acute cardiac symptoms (6) HTN (hypertension): Blood pressure elevated in ED likely in setting of pain Control pain and monitor Has been on atenolol 25 mg daily we will change to Lopressor and then Toprol-XL on discharge Will not increase any beta-vicky due to low heart rate Will give hydralazine 10 mg IV x1 now and Hydralazine 25 mg 3 times daily has been added She will be transferred to [facility] on improvement of the blood pressure (7) CKD (chronic kidney disease), stage III: baseline cr 1.0 monitor (8) HLD (hyperlipidemia): continue statin (9) DVT prophylaxis: apixaban Disposition: admit to med/surg, case management consulted, likely to need placement at acute rehab Follow up: PCP Dr. Castañeda upon discharge Discussed with the daughter in detailed Admission and Anticipated Discharge Date Admission Date: October 05, 2019 Subjective The patient was seen and examined in the medical floor She was admitted with back pain and radiculopathy more on the right than the left side Clinically a little better today Could not tolerate physical therapy well Denies any bowel and/or bladder problems 10/06/2019 The patient was seen and examined in medical floor She still complains of severe back pain with radiation down to the legs more on the right than the left side She denies any problem with urine and bowel habit Her pain medications have been changed as recommended by the pain therapist 10/07/2019 The patient is seen and examined in the medical floor She has been sitting on a chair with ongoing pain at the back Pain is a little better compared with yesterday Her blood pressure was noted to be high at systolic 185/108 without any symptoms Review of Systems Review of Systems: All systems reviewed and are unremarkable except as noted below Musculoskeletal: Back pain with radiation of pain more on the right leg than the left Physical Exam Physical Exam: Sitting on a chair without any acute distress Constitutional: well developed and well nourished; no acute distress and not ill appearing Eyes: PERRL, conjunctivae normal, anicteric sclerae ENMT: external ear and nose normal, oropharynx normal Neck: trachea midline, no thyromegaly Respiratory: normal respiratory effort; no respiratory distress Auscultation: lungs clear to auscultation bilaterally Cardiovascular: Rate/Rhythm: regular rate and regular rhythm Heart Sounds: no murmur Gastrointestinal (Abdomen): Inspection/Auscultation: abdomen normal to inspection and normal bowel sounds; abdomen not distended Percussion/Palpation: abdomen soft Musculoskeletal: Spine: + limited thoraco-lumbar ROM Extremities: + limited ROM of extremities (Lower extremities due to severe pain with elevation) No acute arthritis in any joint. Neurologic: moves all extremities; no focal motor deficits Alert, awake and oriented x3 Results & Data Results & Data ([facility]) Vital Signs (Past 12 Hours) Vital Signs Temp Pulse Resp BP Pulse Ox 10/07/19 08:00 37 C 60 20 185/108 H 94 10/07/19 00:27 161/94 H Medications Administered Current Inpatient Medications Acetaminophen (Tylenol) 650 mg PO Q4H PRN PRN Reason: pain/fever Stop: 11/03/19 12:59 Last Admin: 10/06/19 06:01 Dose: 650 mg Documented by: Hydrocodone Bitart/Acetaminophen ([place] 5/325) 1 tab PO Q4H PRN PRN Reason: Moderate Pain Stop: 10/18/19 11:04 Last Admin: 10/07/19 06:36 Dose: 1 tab Documented by: Al Hydrox/Mg Hydrox/Simethicone (Maalox) 30 ml PO Q6H PRN PRN Reason: Dyspepsia Stop: 11/03/19 12:59 Last Admin: 10/04/19 23:51 Dose: 30 ml Documented by: Apixaban (Eliquis) 5 mg PO BID [facility] Stop: 11/03/19 20:59 Last Admin: 10/07/19 07:58 Dose: 5 mg Documented by: Docusate Sodium (Colace) 100 mg PO BID PRN PRN Reason: Constipation Stop: 11/03/19 12:59 Last Admin: 10/07/19 07:57 Dose: 100 mg Documented by: Hydralazine HCl (Apresoline) 25 mg PO TID [facility] Stop: 11/06/19 13:59 Levothyroxine Sodium (Synthroid) 112 mcg PO DAILYBB [facility] Stop: 11/04/19 06:29 Last Admin: 10/07/19 05:53 Dose: 112 mcg Documented by: Lidocaine (Lidoderm 5%) 1 patch TD QAM [facility] Stop: 11/03/19 13:14 Last Admin: 10/07/19 07:59 Dose: 1 patch Documented by: Magnesium Hydroxide (Milk Of Magnesia) 30 ml PO Q6H PRN PRN Reason: Constipation Stop: 11/03/19 12:59 Metoprolol Tartrate (Lopressor) 25 mg PO BID [facility] Stop: 11/05/19 11:59 Last Admin: 10/07/19 07:58 Dose: 25 mg Documented by: Miscellaneous (Remove Lidoderm Patch) 1 ea N/A DAILY@2100 [facility] Stop: 11/03/19 20:59 Last Admin: 10/06/19 20:09 Dose: 1 ea Documented by: Morphine Sulfate (Morphine Sulfate) 4 mg IV Q4H PRN PRN Reason: Severe Pain Stop: 10/18/19 12:59 Last Admin: 10/05/19 04:32 Dose: 4 mg Documented by: Ondansetron HCl (Zofran) 4 mg IV Q6H PRN PRN Reason: Nausea Stop: 11/03/19 12:59 Last Admin: 10/05/19 04:36 Dose: 4 mg Documented by: Pantoprazole Sodium (Protonix) 40 mg PO DAILY MARIA TERESA Stop: 11/04/19 08:59 Last Admin: 10/07/19 07:57 Dose: 40 mg Documented by: Polyethylene Glycol (Miralax Powder Packet) 17 gm PO DAILY PRN PRN Reason: Constipation Stop: 11/03/19 12:59 Pravastatin Sodium (Pravachol) 20 mg PO DAILY MARIA TERESA Stop: 11/04/19 08:59 Last Admin: 10/07/19 07:58 Dose: 20 mg Documented by: Tapentadol (Nucynta Er) 50 mg PO Q12 MARIA TERESA Stop: 10/20/19 08:59 Last Admin: 10/07/19 07:57 Dose: 50 mg Documented by: Vitamin D (Vitamin D3) 1,000 units PO DAILY MARIA TERESA Stop: 11/04/19 08:59 Last Admin: 10/07/19 07:57 Dose: 1,000 units Documented by:
[2019-10-07 13:11] LABS: BUN Creatinine Ratio 20.2 (10-20); Calcium 8.5 mg/dl (8.5-10.1); Creatinine Clr Calc Pharmacy 52.4 ml/min; Est GFR (African American) 73.5; Est GFR (Non-African American) 63.4
[2019-10-08] MEDS: HYDROCODONE/ACETAMOPHEN 5/325MG TAB PO PRN ×2 (04:25→13:04)
[2019-10-08] MEDS: LEVOTHYROXINE SODIUM 112 MCG TABLET PO SCH (05:45)
[2019-10-08] MEDS: TAPENTADOL HCL ER 50 MG TABCR PO SCH (09:23)
[2019-10-08] MEDS: PANTOPRAZOLE PO SCH (09:24)
[2019-10-08] MEDS: METOPROLOL TARTRATE 25 MG TAB PO SCH (09:24)
[2019-10-08] MEDS: PRAVASTATIN SOD 20 MG TAB PO SCH (09:25)
[2019-10-08] MEDS: CHOLECALCIFEROL 1,000 UNITS 25 MCG TAB PO SCH (09:25)
[2019-10-08] MEDS: APIXABAN 5 MG TABLET PO SCH (09:25)
[2019-10-08] MEDS: LIDOCAINE 5% 1 PATCH TD SCH (09:38)
--- NOTE | 2019-10-08 12:45 | Hospitalist Progress Note ---
Date of Service October 08, 2019 Assessment & Plan (1) Ambulatory dysfunction: Secondary to back pain PT and OT evaluation-recommended rehab Will be transferred to [facility] to continue physical therapy (2) Lumbar radiculopathy: Has lower back pain secondary to compression fractures of the L1 and L3 and also sacral fracture Has radiculopathy mostly on the right side No problem with bowel and/or bladder function Appreciate Ortho input-no surgical intervention Appreciate pain management input and recommendation No intervention at this time and continue with oral pain management irrigation Has been getting Nucynta and pain seems to be under control Participated in physical therapy and will be transferred to [facility] when the blood pressure is reasonably controlled Discussed with the daughter in detail Will be transferred to [facility] this afternoon (3) Compression fracture: This is an 84-year-old female who has significant PMH of PAF anticoagulated on Eliquis, HTN, HLD, CKD stage III, history of second-degree heart block status post PPM in 2017, GERD who presents to ED secondary to intractable back pain x2 weeks. Pt with intractable low back pain with lumbar radiculopathy symptoms. Prior CT of lumbar spine revealed L1 and L3 stable and no compression fractures, no new fractures. Patient unable to have MRI given pacemaker. Now with ambulatory dysfunction, worsening of symptoms and unable to return home. +straight leg raise. We will continue with PT and OT No surgical intervention as per orthopedic and pain therapist (4) Hypokalemia: K 3.3 replace repeat in a.m.-pending for now (5) Paroxysmal A-fib: Rate and rhythm controlled on atenolol Continue apixaban for stroke prophylaxis No acute cardiac symptoms (6) HTN (hypertension): Blood pressure elevated in ED likely in setting of pain Control pain and monitor Has been on atenolol 25 mg daily we will change to Lopressor and then Toprol-XL on discharge Will not increase any beta-vicky due to low heart rate Will give hydralazine 10 mg IV x1 now and Hydralazine 25 mg 3 times daily has been added She will be transferred to [facility] on improvement of the blood pressure Blood pressure is controlled (7) CKD (chronic kidney disease), stage III: baseline cr 1.0 monitor (8) HLD (hyperlipidemia): continue statin (9) DVT prophylaxis: apixaban Disposition: admit to med/surg, case management consulted, likely to need placement at acute rehab Follow up: PCP Dr. Castañeda upon discharge Discussed with the daughter in detailed Admission and Anticipated Discharge Date Admission Date: October 05, 2019 Subjective The patient was seen and examined in the medical floor She was admitted with back pain and radiculopathy more on the right than the left side Clinically a little better today Could not tolerate physical therapy well Denies any bowel and/or bladder problems 10/06/2019 The patient was seen and examined in medical floor She still complains of severe back pain with radiation down to the legs more on the right than the left side She denies any problem with urine and bowel habit Her pain medications have been changed as recommended by the pain therapist 10/07/2019 The patient is seen and examined in the medical floor She has been sitting on a chair with ongoing pain at the back Pain is a little better compared with yesterday Her blood pressure was noted to be high at systolic 185/108 without any symptoms 10/08/2019 The patient was seen and examined in medical floor in presence of the daughter Her pain seems to be stable and not worse compared with before She has been getting physical therapy Her blood pressure is controlled Review of Systems Review of Systems: All systems reviewed and are unremarkable except as noted below Musculoskeletal: Back pain with radiation of pain more on the right leg than the left Physical Exam Physical Exam: Sitting on a chair without any acute distress Constitutional: well developed, well nourished and + obese; no acute distress and not ill appearing Eyes: PERRL, conjunctivae normal, anicteric sclerae ENMT: external ear and nose normal, oropharynx normal Neck: trachea midline, no thyromegaly Respiratory: normal respiratory effort; no respiratory distress Auscultation: lungs clear to auscultation bilaterally Cardiovascular: Rate/Rhythm: regular rate and regular rhythm Heart Sounds: no murmur Gastrointestinal (Abdomen): Inspection/Auscultation: abdomen normal to inspection and normal bowel sounds; abdomen not distended Percussion/Palpation: abdomen soft Musculoskeletal: Spine: + limited thoraco-lumbar ROM Extremities: + limited ROM of extremities (Lower extremities due to severe pain with elevation) Lower back pain with radiation to both the legs more on the right than the left Neurologic: moves all extremities; no focal motor deficits Alert, awake and oriented x3. Genitourinary: No bladder and/or bowel problems Results & Data Results & Data ([facility]) Vital Signs (Past 12 Hours) Vital Signs Temp Pulse Resp BP Pulse Ox 10/08/19 08:00 36.7 C 60 18 150/87 H 93
--- NOTE | 2019-10-09 08:31 | Discharge Summary ---
Date of Service October 09, 2019 Admission HPI Per Admitting Provider This is an 84-year-old female who has significant PMH of PAF anticoagulated on Eliquis, HTN, HLD, CKD stage III, history of second-degree heart block status post PPM in 2017, GERD who presents to ED secondary to intractable back pain x2 weeks. Daughter Jessica is at bedside. Patient states over the past 3 weeks she developed significant bilateral lower back pain with radiation to bilateral lower extremities right greater than left. Pain radiates to the lateral aspect of right buttock and down right leg to foot. Pain is described as sharp and burning, worse with movement, improved with rest, tried Tylenol, lidocaine patch, tramadol without relief. Pain in the left leg is more of a, "tightness," and will loosen up with walking, but this does not occur on the right. She is a known PMH of osteoporosis as well as known compression fractures. She was seen in walk even to ED on 09/[address] scan which revealed diffuse osseous demineralization with stable compression fractures of L1 and L3. L4-5 revealed concentric bulge minimally contacting the thecal sac and bilateral ligamentum flavum and facet hypertrophy. Also noted was a 5 x 2 cm cystic pelvic mass representing ovarian cyst. He was unable to obtain MRI due to pacemaker as it was found to be noncompatible. She was seen and evaluated by PCP as well and did receive a steroid injection to right buttock. She was also prescribed tramadol which caused nausea and she did not tolerate this. She has had progressive decline with ambulatory status and functioning at home. Initially it started with difficulty with ADLs and now she just has difficulty ambulating in general. Pain is extremely severe when standing and attempting to walk. She denies any bowel or bladder incontinence. She does deal with constipation on a chronic basis and last BM was 2 days ago. She does take [id number] stool softeners. She denies any fever, chills, sweats, lightheadedness, dizziness, chest pain, short breath, cough, nausea, vomiting, abdominal pain. She denies any known contact with COVID-19. Denies any loss of smell or taste. In ED patient made hemodynamically stable but was significantly hypertensive in setting of pain. She also did not have her a.m. meds. Lab work notable for K3.3, BUN and creatinine 15.85 otherwise CBC and CMP relatively unremarkable. Urinalysis appears consistent with contamination. In ED she did receive analgesia with improvement in pain. She also received oral potassium. Admission Exam Per Admitting Provider Physical Exam: Constitutional: WD/WN, elderly, female, vitals as above, NAD, sitting up in bed, pleasant, conversing easily Head: Normocephalic, Atraumatic Eyes: PERRL, conjunctivae normal, anicteric sclerae ENMT: external ear and nose normal, oropharynx normal Neck: trachea midline, no thyromegaly normal visual inspection Respiratory: normal respiratory effort, lungs clear to auscultation, no wheeze, rales, rhonchi. Normal insp/exp effort, no accessory muscle use Cardiovascular: RRR, no murmur, no edema but obese lower extremities vessels: no JVD or carotid bruit Chest: normal inspection of chest Abdomen: normal bowel sounds, soft, nontender, no hepatosplenomegaly Musculoskeletal: no cyanosis or clubbing, patient with inability to move bilateral lower extremities secondary to pain. I was able to passively flex and extend bilateral lower extremities. Positive straight leg raise on right. Positive pain to palpation to bilateral paraspinal musculature but no pain to palpation of her actual vertebral processes. Back examined and no erythema or rash. Bilateral upper extremities range of motion in place and strength 5 out of 5. Skin: no rashes, warm and dry normal turgor Neurologic: PERRL, EOMI, accommodation nl, no face palsy, no dysarthria CN's II-XI intact bilaterally and moves all extremities Psychiatric: A+Ox3, euthymic affect Lymphatic: no cervical or axillary lymphadenopathy : deferred Principal Diagnosis Number spinal compression fractures of L1 and L3 with radiculopathy, nondisplaced sacral fracture, ambulatory dysfunction Discharge Exam Constitutional well developed, well nourished and + obese; no acute distress and not ill appearing Eyes PERRL, conjunctivae normal, anicteric sclerae ENMT external ear and nose normal, oropharynx normal Neck trachea midline, no thyromegaly Respiratory normal respiratory effort; no respiratory distress Auscultation: lungs clear to auscultation bilaterally Cardiovascular Rate/Rhythm: regular rate and regular rhythm Heart Sounds: no murmur Gastrointestinal (Abdomen) Inspection/Auscultation: abdomen normal to inspection and normal bowel sounds; abdomen not distended Percussion/Palpation: abdomen soft Musculoskeletal Spine: + limited thoraco-lumbar ROM Extremities: + limited ROM of extremities (Lower extremities due to severe pain with elevation) Neurologic moves all extremities; no focal motor deficits Discharge Data Allergies Allergy/AdvReac Type Severity Reaction Status Date / Time Iodinated Contrast Media Allergy Unknown _ Unverified 10/04/19 05:41 Consultations 10/04/19 10:00 ED Decision to Admit Stat 10/04/19 11:06 Consult Orthopedic Surgery Routine 10/04/19 13:00 Consult Case Management - Discharge Planning Routine 10/05/19 14:23 Consult Pain Management Routine Ordered Studies 10/04/19 10:45 CT lumbar spine wo con Stat CT thoracic spine wo con Stat 10/04/19 10:47 CT pelvis wo con Stat Hospital Course (1) Ambulatory dysfunction: Secondary to back pain PT and OT evaluation-recommended rehab Will be transferred to [facility] to continue physical therapy (2) Lumbar radiculopathy: Has lower back pain secondary to compression fractures of the L1 and L3 and also sacral fracture Has radiculopathy mostly on the right side No problem with bowel and/or bladder function Appreciate Ortho input-no surgical intervention Appreciate pain management input and recommendation No intervention at this time and continue with oral pain management irrigation Has been getting Nucynta and pain seems to be under control Participated in physical therapy and will be transferred to [facility] when the blood pressure is reasonably controlled Discussed with the daughter in detail Will be transferred to [facility] this afternoon (3) Compression fracture: This is an 84-year-old female who has significant PMH of PAF anticoagulated on Eliquis, HTN, HLD, CKD stage III, history of second-degree heart block status post PPM in 2017, GERD who presents to ED secondary to intractable back pain x2 weeks. Pt with intractable low back pain with lumbar radiculopathy symptoms. Prior CT of lumbar spine revealed L1 and L3 stable and no compression fractures, no new fractures. Patient unable to have MRI given pacemaker. Now with ambulatory dysfunction, worsening of symptoms and unable to return home. +straight leg raise. We will continue with PT and OT No surgical intervention as per orthopedic and pain therapist (4) Hypokalemia: K 3.3 replace repeat in a.m.-pending for now (5) Paroxysmal A-fib: Rate and rhythm controlled on atenolol Continue apixaban for stroke prophylaxis No acute cardiac symptoms (6) HTN (hypertension): Blood pressure elevated in ED likely in setting of pain Control pain and monitor Has been on atenolol 25 mg daily we will change to Lopressor and then Toprol-XL on discharge Will not increase any beta-vicky due to low heart rate Will give hydralazine 10 mg IV x1 now and Hydralazine 25 mg 3 times daily has been added She will be transferred to [facility] on improvement of the blood pressure Blood pressure is controlled (7) CKD (chronic kidney disease), stage III: baseline cr 1.0 monitor (8) HLD (hyperlipidemia): continue statin (9) DVT prophylaxis: apixaban Disposition: admit to med/surg, case management consulted, likely to need placement at acute rehab Follow up: PCP Dr. Castañeda upon discharge Discussed with the daughter in detailed Total Time Total Time Spent Total Time Spent (In Minutes): 40 minutes Total Time Includes: Examination of the Patient, Discharge Planning, Medication Reconciliation and Communication With Other Providers Discharge Plan Discharge Items Patient Disposition: Transfer Inpatient Rehab Fac Reason For Visit: INTRACTABLE BACK PAIN Discharge Diagnosis: Number spinal compression fractures of L1 and L3 with radiculopathy, nondisplaced sacral fracture, ambulatory dysfunction Condition on Discharge: Fair Activity: As commented below Activity Comment: Continue physical therapy Non-emergency contact: Primary Care Provider Call non-emergency contact if: you have any medication questions and your symptoms worsen Follow-up/Referrals: Blossom Bennett PA-C [Physician Industrial Staff Nurse] - (Please make an appointment with pain therapist within 1 to 2 weeks following discharge from the facility) Lakesha Castañeda DO [Primary Care Provider] - (Please make an appointment with your primary care physician within 1 week of discharge from the facility) Diet: Heart Healthy Addtl Attending Provider Instructions: Please take precaution to avoid falls Please take extra precaution while you are on narcotic pain medications. Nucynta is not covered under your prescription and that are changed to MS Contin 30 mg twice daily. We will need to make an appointment with the pain therapist as an outpatient within 1 to 2 weeks Pending Studies at Discharge: No Stand-Alone Forms: My [facility] Skilled Items Patient informed of condition?: Yes DNR: No Discharge Level of Care: Acute rehab Communicable Disease: No Discharge Prognosis: Stable Lines: None Urinary Catheter: No Medications and DC Order Prescriptions: New hydrocodone-acetaminophen [[place]] 5-325 mg Tablet 1 tab PO Q4H PRN (Reason: pain) 3 Days Qty: 12 RF: 0 hydralazine 25 mg Tablet 25 mg PO TID 30 Days Qty: 90 RF: 0 lidocaine 5 % Adhesive Patch,Medicated 1 patch transdermal QAM 30 Days Qty: 30 RF: 0 metoprolol tartrate 25 mg Tablet 25 mg PO BID 30 Days Qty: 60 RF: 0 morphine 30 mg tablet extended release 30 mg PO Q12H Qty: 6 RF: 0 Continued alendronate 70 mg tablet 70 mg PO MO RF: 0 docusate sodium 100 mg capsule 100 mg PO BID PRN (Reason: Constipation) RF: 0 omeprazole 20 mg capsule,delayed release(DR/EC) 20 mg PO DAILY RF: 0 pravastatin 20 mg tablet 20 mg PO DAILY RF: 0 levothyroxine [Synthroid] 112 mcg tablet 112 mcg PO DAILY RF: 0 Eliquis 5 mg tablet 5 mg PO BID RF: 0 cholecalciferol (vitamin D3) [Vitamin D3] 25 mcg (1,000 unit) Tablet 25 mcg PO DAILY RF: 0 Discontinued atenolol 25 mg tablet 25 mg PO DAILY RF: 0 Discharge Orders: Discharge Order (Routine); Ordered 10/08/19 Ordered By: Kori Bosch Admission Data Admit Date/Time: 10/05/19 14:25 Attending Provider: Kori Bosch Admit Provider: Kori Bosch Primary Care Provider: Lakesha Castañeda. Other Providers: [facility] ; Kori Bosch ; Harry Beatty ; Russel Hart ; Cristina Harvey ; Sreedhar Rendon ; Blossom Bennett Other Interventions: Discharge Summary Assessment (RN) Last Done: 10/08/19 14:08 DC Date/Time DO NOT enter until pt leaves facility: 10/08/19 14:52
== END 2019-10-08 14:52 | DRG 552 ==
LOC: ED 05:06 → 3N 05:06